=== PATIENT | male | born 2000 | race African-American/Black ===

== ENCOUNTER 2022-02-25 19:54 | Emergency (ER) | payer SELFPAY ==
[~2022-02-25] VITALS: Ht 175.3 cm; Wt 77.3 kg
[2022-02-25 21:08] LABS: BASO % 0.6 % (0.0-2.0); EOS # 0.1 K/mm3 (0.0-0.7); EOS % 1.3 % (0.0-4.0); GRAN # 4.3 K/mm3 (1.4-6.5); GRAN % 62.2 % (42.2-75.2); HEMATOCRIT 44.3 % (42.0-52.0); HEMOGLOBIN 15.1 g/dl (13.5-18.0); LYMPH # 1.9 K/mm3 (1.2-3.4); LYMPH % 27.5 % (20.0-51.0); MEAN CELL VOLUME 91 fl (80.0-100.0); MEAN CORPUSCULAR HEMOGLOBIN 31 pg (27-31); MEAN CORPUSCULAR HGB CONC 34 g/dl (33.0-37.0); MEAN PLATELET VOLUME 9.5 fl (7.4-10.4); MONO # 0.6 K/mm3 (0.1-0.6); PLATELET COUNT 225 K/mm3 (130-400); RED BLOOD COUNT 4.89 M/mm3 (4.20-5.60); REDCELL DISTRIBUTION WIDTH-CV 12.4 % (11.5-14.5)
[2022-02-25 21:22] LABS: ALBUMIN 4.1 gm/dL (3.5-5.0); BILIRUBIN,TOTAL 1.1 mg/dL (0.2-1.2); CALCIUM 9.1 mg/dL (8.4-10.2); CREATININE, serum 1.01 mg/dL (0.72-1.25); POTASSIUM 4.1 mmol/L (3.5-4.5); TOTAL PROTEIN 7.1 gm/dL (6.2-8.1)
[2022-02-25] MEDS ORDERED: PEPCID 20MG TAB20 MG PO (22:22)
[2022-02-25 22:35] VITALS: BP 127/74; PULSE 58; TEMP 98.2
== END 2022-02-25 22:35 | disposition home or self-care (01) ==
LOC: COL.ER 19:54
PROVIDERS: Emergency Medicine
DX: R10.12 Left upper quadrant pain (principal); R10.13 Epigastric pain; Z28.310 Unvaccinated for COVID-19